=== PATIENT | male | born 1995 | race Caucasian/White ===

== ENCOUNTER 2024-02-11 07:58 | Outpatient (CLI) | payer OTHER, SELFPAY ==
--- NOTE | 2024-02-11 08:00 | CT_ITS ---
WS: [id number] CT RIGHT FOOT, NONCONTRAST HISTORY: Right foot crush injury Technique: All CT scans at [facility] use at least one of these dose optimization techniques: automated exposure control; mA and/or kV adjustment per patient size (includes targeted exams where dose is matched to clinical indication); or iterative reconstruction. DLP: 144.97 mGy.cm COMPARISON: Radiograph 02/04/2024 No acute fractures are identified associated with the midfoot. Cuneiforms are normal with no tiny avu lsion fractures. There is no widening of the proximal first and second metatarsals. Tarsal bones are normally aligned. There is no significant edema surrounding the foot. Calcaneus and talus are normal. No phalangeal fractures are identified. The tiny possible avulsion fracture involving the terminal t uft of the second toe is not well visualized. This could be an avulsion fracture or from an old injur y. There is not a significant amount of soft tissue edema. No hematoma. No joint effusion. IMPRESSION: 1. No acute RIGHT foot fracture is identified. There are no secondary findings of an injury to the L isfranc ligament. 2. CT is not very sensitive for evaluating the Lisfranc ligament as this is a nonweightbearing exam. There are no associated osseous injury typically seen with Lisfranc injury. 3. No significant soft tissue edema. 4. The previously described terminal tuft curvilinear ossification involving the second toe is not v lloyd well seen by CT.
== END 2024-02-11 07:59 | disposition home or self-care (01) ==
LOC: RAD 08:00
PROVIDERS: PCP Urology; Visit Provider Podiatrist Foot & Ankle Surgery
DX: S97.81XA Crushing injury of right foot, initial encounter (principal); X58.XXXA Exposure to other specified factors, initial encounter
CPT/HCPCS: 73700